=== PATIENT | male | born 1935 | race Caucasian/White ===

== ENCOUNTER 2020-03-14 12:23 | Emergency (ER) | payer MEDICARE, OTHER ==
[~2020-03-14] VITALS: Ht 162.6 cm; Wt 72.5 kg
[2020-03-14 13:15] LABS: BASOPHILS % (AUTO) 0 % (0-1); EOSINOPHILS % (AUTO) 1 % (1-7); LYMPHOCYTES % (AUTO) 15 % (22-44); MEAN CORPUSCULAR HEMOGLOBIN 31.7 pg (27.5-34.5); MEAN CORPUSCULAR HGB CONC 35.3 g/dL (33.2-36.2); MEAN PLATELET VOLUME 7.4 fL (7.4-10.4); MONOCYTES % (AUTO) 9 % (2-9); NEUTROPHILS % (AUTO) 76 % (42-75); PLATELET COUNT 305 x10^3/uL (130-400); RED BLOOD COUNT 4.01 x10^6/uL (4.38-5.82)
[2020-03-14 13:16] LABS: MD NO
[2020-03-14 13:22] LABS: ALANINE AMINOTRANSFERASE 30 U/L (12-78); ALBUMIN 2.8 g/dL (3.4-5.0); ANION GAP 7 mmol/L (5-15); CALCIUM 8.6 mg/dL (8.5-10.1); CHLORIDE 105 mmol/L (98-107); CREATININE 0.93 mg/dL (0.7-1.3)
[2020-03-14 13:26] LABS: ALKALINE PHOSPHATASE 132 U/L (45-117); BILIRUBIN,TOTAL 0.5 mg/dL (0.2-1.0); TOTAL PROTEIN 8.8 g/dL (6.4-8.2)
[2020-03-14] MEDS ORDERED: CEFTRIAXONE PMX 1GM/50ML 50 ML IVPB ONE (14:30)
[2020-03-14] MEDS ORDERED: AZITHROMYCIN 500 MG in SODIUM CHLORIDE 0.9% 250 ML IV ONE (14:30)
[2020-03-14] MEDS ORDERED: CEFTRIAXONE 1,000 MG IM ONE (14:30)
[2020-03-14] MEDS ORDERED: CEFTRIAXONE PMX 1GM/50ML 50 ML ONE (14:42)
--- NOTE | 2020-03-14 14:48 | NUR ---
AMBULATED PT WITH SPO2, O2 97% NOTIFIED
--- NOTE | 2020-03-14 15:56 | NUR ---
TASK RN: ANTIBIOTICS INFUSING. BREATHING EVEN AND UNLABORED. FAMILY AT BEDSIDE.
[2020-03-14 18:02] VITALS: BP 124/74
--- NOTE | 2020-03-14 18:48 | NUR ---
EVER MARTINES RN ASSUMING CARE OF PT AT THIS TIME
--- NOTE | 2020-03-14 19:16 | NUR ---
PT PROVIDED MEAL TRAY, DAUGHTER AT BEDSIDE TO ASSIST WITH FEEDING. PER REPORT O2 SHOULD BE ARRIVING SHORTLY FOR PT TO DC HOME WITH
--- NOTE | 2020-03-14 19:35 | NUR ---
O2 HAS ARRIVED PT AND DAUGHTER PRESENT FOR EDUCATION ON USE OF PRODUCTS AT THIS TIME
--- NOTE | 2020-03-14 19:49 | NUR ---
Patient/Caregiver given discharge instructions and they have confirmed that they understand the instructions. Patient wheeled to car at this time with daughter and home o2
== END 2020-03-14 19:53 | disposition home or self-care (01) ==
LOC: ED 15:01
DX: U07.1 COVID-19 (principal); J18.9 Pneumonia, unspecified organism; I44.0 Atrioventricular block, first degree; E11.9 Type 2 diabetes mellitus without complications
CPT/HCPCS: 36415; 71045; 80053; 83605; 83880; 84484; 85025; 87040; 87635; 93005; 96365; 96368; 99285; J0456; J0696; J7050; 99284